=== PATIENT | male | born 1975 | race Caucasian/White ===

== ENCOUNTER 2017-08-24 19:25 | Emergency (ER) | payer OTHER ==
[~2017-08-24] VITALS: Ht 185.4 cm; Wt 137.3 kg
[2017-08-24 19:53] LABS: APPEARANCE CLEAR ((CLEAR)); BILIRUBIN NEGATIVE; BLOOD SMALL; COLOR STRAW ((YELLOW)); GLUCOSE (STRIP) >=500; KETONES NEGATIVE; LEUKOCYTES NEGATIVE; NITRITE NEGATIVE; PROTEIN (STRIP) 30; SPECIFIC GRAVITY 1.029 (1.000-1.030); UROBILINOGEN 0.2 MG/DL (0.2-1.0)
[2017-08-24 19:56] LABS: HEMATOCRIT 40.6 % (38.0-50.0); MCH 28.9 PG (29.0-34.0); MCHC 34.5 G/DL (30.0-36.0); MCV 83.7 FL (86-99); PLATELET COUNT 296 K/uL (156-360); RBC DIS.WIDTH-CV 12.1 % (11.8-14.6); RBC DIS.WIDTH-SD 36.7 % (39-53); RED BLOOD COUNT 4.85 M/uL (4.00-5.50); WHITE BLOOD COUNT 10.6 K/uL (4.1-10.2)
[2017-08-24 20:03] LABS: ALBUMIN 3.7 g/dL (3.2-4.8); CHLORIDE 101 mEq/L (99-109); SODIUM 135 mEq/L (136-147)
[2017-08-24 20:06] LABS: TOTAL PROTEIN 7.6 g/dL (6.4-8.3)
[2017-08-24 20:07] LABS: TOTAL BILIRUBIN 0.3 mg/dL (0.0-1.0)
[2017-08-24 20:09] LABS: ALKALINE PHOSPHATASE 99 IU/L (3-129); CREATININE 0.9 mg/dL (0.6-1.3)
[2017-08-24 20:10] LABS: UREA NITROGEN (BUN) 8 mg/dL (9-23)
[2017-08-24 20:11] LABS: AST (GOT) 19 IU/L (2-34)
[2017-08-24 20:12] LABS: ALT (GPT) 34 IU/L (3-49)
[2017-08-24 20:18] LABS: GFR ESTIMATE (CALCULATED) > 59 mL/min/ (58.99-99999); GLUCOSE 449 mg/dL (70-99)
[2017-08-24 20:32] LABS: UCUL ADDED? NO
[2017-08-24 20:34] LABS: BACTERIA NONE SEEN /HPF; EPITHELIAL CELLS RARE /HPF; MUCUS TRACE /LPF; RED BLOOD CELLS 0-5 /HPF (0-5); WHITE BLOOD CELLS 0-5 /HPF (0-5)
[2017-08-24 21:37] VITALS: BP 123/76
== END 2017-08-24 21:39 | disposition home or self-care (01) ==
LOC: EME 19:25
DX: E11.65 Type 2 diabetes mellitus with hyperglycemia (principal); F31.9 Bipolar disorder, unspecified; F41.9 Anxiety disorder, unspecified; F17.200 Nicotine dependence, unspecified, uncomplicated
CPT/HCPCS: 80053; 81003; 82948; 85027; 99281; 99284; J7030

== ENCOUNTER 2017-10-08 10:27 | Emergency (ER) | payer OTHER ==
[~2017-10-08] VITALS: Ht 185.4 cm; Wt 150.5 kg
[2017-10-08] MEDS ORDERED: MEDROL DOSEPAK4 MG PO (13:49)
[2017-10-08] MEDS ORDERED: FLEXERIL10 MG PO (13:49)
[2017-10-08 14:33] VITALS: BP 121/82
== END 2017-10-08 14:33 | disposition home or self-care (01) ==
LOC: EME 10:27
DX: M54.16 Radiculopathy, lumbar region (principal); M25.551 Pain in right hip; G89.29 Other chronic pain; E11.9 Type 2 diabetes mellitus without complications; F41.9 Anxiety disorder, unspecified; F17.200 Nicotine dependence, unspecified, uncomplicated
CPT/HCPCS: 72100; 73502; 99281; 99284; J1885

== ENCOUNTER 2018-01-03 21:15 | Emergency (ER) | payer OTHER ==
[~2018-01-03] VITALS: Ht 185.4 cm; Wt 153.0 kg
[~2018-01-03 21:15] MED LIST: FLEXERIL10 MG PO; MEDROL DOSEPAK4 MG PO
[2018-01-03 21:21] VITALS: BP 133/72
== END 2018-01-03 22:30 | disposition left against medical advice (07) ==
LOC: EXP 21:15 → EME 21:15 → EXP 22:30
DX: S49.91XA Unspecified injury of right shoulder and upper arm, initial encounter (principal); Z53.21 Procedure and treatment not carried out due to patient leaving prior to being seen by health care provider